=== PATIENT | female | born 1980 | race Caucasian/White ===

== ENCOUNTER 2023-02-19 21:35 | Emergency (ER) | payer BC, SELFPAY ==
[2023-02-19] VITALS (7 sets, daily range): BP systolic 125–140; BP diastolic 82–88; PULSE 79–87; RESP 14–16; TEMP 36.3; O2SAT 97–99; BMI 31.0
--- NOTE | 2023-02-19 22:23 | ED.NURSE ---
Unable to locate ED provider until 2222. Discussed symptoms with Dr. Foster: sudden onset headache on one side of body, face/arm L side, nausea, photophobia. Per MD, stroke code not to be called.
--- NOTE | 2023-02-19 22:28 | ED.NURSE ---
paper wood cutter placed and continuous monitoring of vital signs. Neuro exam performed by writer technical publications, and pt displaying weakness in left lower extremity. MD updated of pt's symptoms of sudden onset headache and weakness to left side of body. At this time, MD declines need for Stroke Code.
--- NOTE | 2023-02-19 22:42 | ED.HA ---
HPI - Headache General Time Seen by Provider: 22:42 Date Seen: 02/19/23 Chief Complaint: Headache/Migraine Stated Complaint: Sharp pain in L side head Time Seen by Provider: 02/19/23 22:38 Source: patient Mode of arrival: ambulatory Limitations: no limitations History of Present Illness HPI Narrative: 43-year-old female who presents today with headache. Patient had abrupt onset of headache at about 9:00 p.m. today, radiating down the left side of the head. Some neck pain with this as well. Did have nausea and vomiting onset. Took some ibuprofen and headache is feeling better but still feels weak on the left side. Related Data Home Medications Medication Instructions Recorded Confirmed atorvastatin 40 mg tablet 40 mg PO DAILY 02/19/23 02/19/23 escitalopram oxalate 10 mg tablet 10 mg PO DAILY 02/19/23 02/19/23 estradiol 0.075 mg/24 hr 1 patch transdermal 2XW 02/19/23 02/19/23 semiweekly transdermal patch medroxyprogesterone 5 mg tablet 5 mg PO DAILY 02/19/23 02/19/23 Allergies Allergy/AdvReac Type Severity Reaction Status Date / Time Penicillins Allergy Unknown Hives Verified 02/19/23 22:31 Sutures AdvReac Unknown Verified 02/19/23 22:31 PFSH PFSH Social History Smoking Status: Never smoker How often do you have a drink containing alcohol: 2-4 times a month AUDIT-C Alcohol total score: 2 Non-prescribed substance use: denies use Exam Narrative: Exam Narrative: General: Well-developed and well-nourished, no acute distress Head: Atraumatic and normocephalic Eyes: Pupils are equal reactive, extraocular motions intact, conjunctiva clear ENT: External nose and ears are normal, posterior pharynx without erythema or exudate Neck: No midline cervical tenderness, full spontaneous range of motion the neck, trachea midline, no adenopathy Heart: Regular rate and rhythm no murmurs or thrills Lungs: Clear to auscultation bilaterally without wheezes or crackles Abdomen: Soft, nontender, nondistended with active bowel sounds Musculoskeletal: No tenderness, deformity, or edema Neurologic: Awake, alert, and oriented x3. No facial asymmetry, sensation of the face, upper and lower extremities is intact. No ataxia of the upper extremities, patient is unable to straight leg raise the left leg off the bed although this is a little bit variable as on initial exam she could not lifted all but then as time went on she was able to lift off the bed a little bit. Strength in the right leg is normal. Psych: Mood and affect are appropriate Skin: No rashes Const: Vital Signs, click to edit/add: Vital Signs - 24 hr 02/19/23 22:02 02/19/23 22:30 02/19/23 22:30 Temperature 97.3 F L Pulse Rate 84 Pulse Rate [Pulse Oximeter] 85 84 Respiratory Rate 14 16 Blood Pressure 140/85 H Blood Pressure [Ri ght Upper Arm] 138/85 Pulse Oximetry 99 98 Oxygen Delivery Me thod Room Air Room Air 02/19/23 22:45 02/19/23 22:45 02/19/23 22:52 Temperature Pulse Rate 79 Pulse Rate [Pulse Oximeter] 79 Respiratory Rate 16 Blood Pressure 139/88 Blood Pressure [Ri ght Upper Arm] Pulse Oximetry 99 99 Oxygen Delivery Me thod Room Air 02/19/23 23:00 02/19/23 23:00 02/19/23 23:30 Temperature Pulse Rate 87 Pulse Rate [Pulse Oximeter] 87 87 Respiratory Rate 16 Blood Pressure 125/82 Blood Pressure [Ri ght Upper Arm] Pulse Oximetry 99 Oxygen Delivery Me thod Room Air 02/19/23 23:30 02/19/23 23:45 02/19/23 23:45 Temperature Pulse Rate 87 81 Pulse Rate [Pulse Oximeter] 81 Respiratory Rate 16 16 Blood Pressure 129/88 129/85 Blood Pressure [Ri ght Upper Arm] Pulse Oximetry 97 98 Oxygen Delivery Me thod Room Air 02/20/23 00:28 02/20/23 00:28 Temperature Pulse Rate 70 Pulse Rate [Pulse Oximeter] 70 Respiratory Rate 20 Blood Pressure 128/87 Blood Pressure [Ri ght Upper Arm] Pulse Oximetry 97 Oxygen Delivery Me thod Room Air Course Course Hospital Course: Patient seen and examined, prior records reviewed. Patient presents today with abrupt onset headache on the left side of the head followed by nausea vomiting, photophobia. On exam here, she has weakness of the left leg with sensation of the upper and lowers intact. ED stroke code initiated will discuss with Neurology. Reevaluation(s) Time of Reevaluation #1: 23:08 Reevaluation #1: Care discussed with Dr. Louis, neurology who recommends trial of ambulation to see if symptoms are consistent with ambulating. Time of Reevaluation #2: 23:46 Reevaluation #2: CT scan of the head independently interpreted by me negative for acute intracranial hemorrhage. CT scan of the neck negative for dissection or significant stenosis. Discussed with Dr. Louis, neurology who recommends having patient ambulate and test strength in that way. Patient rechecked, still having difficulty with straight leg raise off the bed although this is still a variable. Patient is able to get up and ambulate without difficulty which is incongruent with the degree of weakness she is exhibiting on bedside testing. Zofran and Toradol added for headache and will continue to monitor in the emergency department. Time of Reevaluation #3: 23:54 Reevaluation #3: Labs independently interpreted by me reassuring with no abnormalities noted on basic metabolic panel , mild leukocytosis. Additional Reevaluation(s): 1:05 a.m. patient recheck, nausea is improved but still having a little bit of headache. We discussed admission versus discharge. Admission will be for pain management and MRI in the morning to complete stroke evaluation, as neurologic symptoms have resolved this could be done as outpatient as well. She would prefer to go home. Tylenol Decadron IV ordered and plan to discharge. Vital Signs Vital signs: Initial Vital Signs Temperature 97.3 F L 02/19/23 22:02 Temperature Source Temporal Artery Scan 02/19/23 22:02 Pulse Rate 85 02/19/23 22:02 Pulse Rhythm Regular 02/19/23 22:02 Respiratory Rate 14 02/19/23 22:02 Blood Pressure 138/85 02/19/23 22:02 Blood Pressure Mean 102 02/19/23 22:02 Blood Pressure Position Sitting 02/19/23 22:02 Pulse Oximetry 99 02/19/23 22:02 Oxygen Delivery Method Room Air 02/19/23 22:02 Vital Signs Temperature 97.3 F L 02/19/23 22:02 Pulse Rate 85 02/19/23 22:02 Respiratory Rate 14 02/19/23 22:02 Blood Pressure 138/85 02/19/23 22:02 Pulse Oximetry 99 02/19/23 22:02 Oxygen Delivery Method Room Air 02/19/23 22:02 Temperature 97.3 F L 02/19/23 22:02 Pulse Rate 70 02/20/23 00:28 Respiratory Rate 20 02/20/23 00:28 Blood Pressure 128/87 02/20/23 00:28 Pulse Oximetry 97 02/20/23 00:28 Oxygen Delivery Method Room Air 02/20/23 00:28 MDM - Headache Lab Data Labs: Lab Results 02/19/23 Range/Units 23:05 WBC 11.85 H (4.50-11.00) K/uL RBC 4.26 (4.00-5.20) m/uL Hgb 12.9 (12.0-16.0) gm/dL Hct 39.4 (33.0-51.0) % MCV 93 (80-100) fL MCH 30 (26-34) pg MCHC 33 (32-36) gm/dL RDW Coeff of Stephen 13.3 (11.5-15.5) % Plt Count 310 (140-440) K/uL Neut % (Auto) 66.5 (42.0-72.0) % Lymph % (Auto) 24.1 (20-44) % [place] % (Auto) 7.2 (0.0-11.0) % Eos % (Auto) 0.8 (0.0-7.0) % Baso % (Auto) 0.5 (0.0-3.0) % Neut # (Auto) 7.90 H (1.7-7.0) K/uL Lymph # (Auto) 2.90 (0.90-2.90) K/uL [place] # (Auto) 0.90 (0.00-0.90) K/UL Eos # (Auto) 0.10 (0.00-0.50) K/uL Baso # (Auto) 0.10 (0.00-0.30) K/uL Abs Immat Gran (auto) 0.10 (0.00-0.30) K/uL Imm/Tot Granulo (auto) 0.9 % INR 1.03 (0.91-1.10) APTT 26 (23-33) Seconds Sodium 139 (135-149) mmol/L Potassium 3.8 (3.6-5.1) mmol/L Chloride 104 (96-114) mmol/L Carbon Dioxide 27 (20-32) mmol/L BUN 13 (5-24) mg/dL Creatinine 0.7 (0.5-1.5) mg/dL Estimated Creat Clear 92.29 Estimated GFR 109 ml/min Glucose 102 (60-115) mg/dL Calcium 9.4 (8.4-10.6) mg/dL ECG Data Attestation: I personally reviewed and interpreted this ECG as follows: ECG interpretation date: 02/19/23 ECG interpretation time: 23:01 Prior ECG tracings: not available for review Interpretation: Sinus rhythm rate 81, no acute ST elevations or depressions, normal intervals, normal axis, QTC 457, MT 102. No prior for comparison. Discharge Plan Discharge Clinical Impression: Headache, Transient left leg weakness Patient Disposition: Home, Self-Care Condition: Stable Instructions: Acute Headache (DC) Additional Instructions: Take Tylenol and ibuprofen as needed for headache. Take Zofran as needed for nausea vomiting. Activity Level: Activity as Tolerated Discharge Diet: Regular Prescriptions: No Action atorvastatin 40 mg tablet 40 mg PO DAILY estradiol 0.075 mg/24 hr patch semiweekly 1 patch transdermal 2XW Rx Instructions: apply 1 patch for 3 days alternating with 1 patch for 4 days each week for 3 wks per 4-wk cycle medroxyprogesterone 5 mg tablet 5 mg PO DAILY escitalopram oxalate 10 mg tablet 10 mg PO DAILY Stand Alone Forms: [facility] Info Instructions
--- NOTE | 2023-02-19 22:52 | CRLHL7_ITS ---
For Patients: As a result of the Century Cures Act, medical imaging exams and procedure reports are released immediately into your electronic medical record. You may view this report before your referring provider. If you have questions, please contact your health care provider. INDICATION: Left-sided headache, left leg weakness. TECHNIQUE: CT head without contrast. COMPARISON: None. FINDINGS: CSF spaces: Within normal limits for age. Brain parenchyma: The gan-white differentiation is normal. No sign of mass, hemorrhage, or midline shift. Skull base and calvarium: The visualized paranasal sinuses and mastoid air cells demonstrate no acute or significant findings. The visualized orbits are grossly unremarkable. No skull fractures. IMPRESSION: No acute intracranial abnormality. Please note that all CT scans at this facility use dose modulation, iterative reconstruction, and/or weight-based dosing when appropriate to reduce radiation dose to as low as reasonably achievable. Dictated by Desmond Wild MD @ 02/19/2023 11:11:14 PM (Electronically Signed)
--- NOTE | 2023-02-19 22:52 | CRLHL7_ITS ---
For Patients: As a result of the Century Cures Act, medical imaging exams and procedure reports are released immediately into your electronic medical record. You may view this report before your referring provider. If you have questions, please contact your health care provider. INDICATION: Left-sided headache, left leg weakness. TECHNIQUE: CTA head with contrast bolus tracking, 3D angiographic rendering using maximum intensity projection (MIP) and images permanently archived. FINDINGS: There is normal opacification of the intracranial vasculature. There is no large vessel occlusion. No aneurysm is identified. IMPRESSION: Unremarkable head CTA. Please note that all CT scans at this facility use dose modulation, iterative reconstruction, and/or weight-based dosing when appropriate to reduce radiation dose to as low as reasonably achievable. Dictated by Ranjeet Gallardo MD @ 02/20/2023 11:05:44 AM (Electronically Signed)
--- NOTE | 2023-02-19 22:52 | ED.NURSE ---
in to assess pt. advises Stroke Code. Imaging immediately called and pt to CT. [facility] called and Dr. Osvaldo dickerson.
--- NOTE | 2023-02-19 22:52 | CRLHL7_ITS ---
For Patients: As a result of the Century Cures Act, medical imaging exams and procedure reports are released immediately into your electronic medical record. You may view this report before your referring provider. If you have questions, please contact your health care provider. INDICATION: Left-sided headache, left leg weakness. TECHNIQUE: CTA neck with contrast bolus tracking, 3D angiographic rendering using maximum intensity projection (MIP) and images permanently archived. FINDINGS: There is no significant carotid artery stenosis or dissection. There is no significant vertebral artery stenosis or dissection. The soft tissues of the neck are within normal limits. The cervical spine is in normal alignment. IMPRESSION: Unremarkable neck CTA. No significant carotid or vertebral artery stenosis or dissection. Please note that all CT scans at this facility use dose modulation, iterative reconstruction, and/or weight-based dosing when appropriate to reduce radiation dose to as low as reasonably achievable. Dictated by Ranjeet Gallardo MD @ 02/20/2023 11:06:45 AM (Electronically Signed)
[2023-02-19 23:17] LABS: Basophils Percent Auto 0.5 % (0.0-3.0); Eosinophils Percent Auto 0.8 % (0.0-7.0); Hematocrit 39.4 % (33.0-51.0); Hemoglobin* 12.9 gm/dL (12.0-16.0); Immature Granulocytes Pct Auto 0.9 %; Lymphocytes Percent Auto 24.1 % (20-44); Mean Corpuscular HGB Conc 33 gm/dL (32-36); Mean Corpuscular Hemoglobin 30 pg (26-34); Mean Corpuscular Volume 93 fL (80-100); Monocytes Percent Auto 7.2 % (0.0-11.0); Neutrophils Percent Auto 66.5 % (42.0-72.0); Platelet Count* 310 K/uL (140-440); RDW Coefficient of Variation % 13.3 % (11.5-15.5); Red Blood Count 4.26 m/uL (4.00-5.20); White Blood Count* 11.85 K/uL (4.50-11.00)
[2023-02-19 23:28] LABS: Chloride* 104 mmol/L (96-114); Potassium* 3.8 mmol/L (3.6-5.1); Sodium* 139 mmol/L (135-149)
[2023-02-19 23:31] LABS: Blood Urea Nitrogen* 13 mg/dL (5-24); Carbon Dioxide* 27 mmol/L (20-32); Creatinine* 0.7 mg/dL (0.5-1.5); Est. Creatinine Clearance* 92.29; Estimated Glomerular Filt Rate 109 ml/min; Slide Review Reflex No
[2023-02-19 23:32] LABS: Calcium* 9.4 mg/dL (8.4-10.6); Glucose* 102 mg/dL (60-115)
[2023-02-19 23:52] LABS: INR 1.03 (0.91-1.10); Partial Thromboplastin Time* 26 Seconds (23-33); Prothrombin Time 14.1 Seconds
[2023-02-20] VITALS (9 sets, daily range): BP systolic 119–131; BP diastolic 80–87; PULSE 64–75; RESP 20; O2SAT 95–99
[2023-02-20] MEDS: KETOROLAC 15 MG/ML inj IVP (00:25)
[2023-02-20] MEDS: 0.9 % SODIUM CHLORIDE 1000 ml 1,000 ML IV (00:26)
[2023-02-20] MEDS: ONDANSETRON 2 MG/ML inj 4 MG IVP (00:26)
[2023-02-20] MEDS: dexAMETHasone 4 MG/ML VIAL 10 MG IV (01:21)
[2023-02-20] MEDS: ACETAMINOPHEN 500 MG TABLET 1000 MG PO (01:21)
== END 2023-02-20 01:36 | disposition home or self-care (01) ==
PROVIDERS: Emergency Provider Family Medicine
DX: R51.9 Headache, unspecified (principal); R53.1 Weakness
CPT/HCPCS: 36415; 70450; 70496; 70498; 80048; 82962; 85025; 85610; 85730; 93005; 94761; 96374; 96375; 99284; 99285; A9270; J1100; J1885; J2405; J7030; Q9967